=== PATIENT | male | born 1965 | race Caucasian/White ===

== ENCOUNTER → 2024-06-09 | Outpatient (CLI) | payer MEDICAID ==
[~2024-06-09] MED LIST: NORPTMEDS CO
[2024-06-09] MEDS: ALBUMIN 25% 100 ML IV ONE (14:44)
--- NOTE | 2024-06-09 14:44 | DVH ---
ULTRASOUND ABDOMEN LIMITED INDICATION: Ascites. TECHNIQUE: Ultrasound evaluation of the 4 quadrants of the abdomen for ascites evaluation. COMPARISON: None FINDINGS: There is ascites visualized in all 4 quadrants of the abdomen, greater on the right side. IMPRESSION: 1. There is ascites in all 4 quadrants of the abdomen. HS:Y
--- NOTE | 2024-06-09 15:31 | DVH ---
PROCEDURE: ULTRASOUND GUIDED PARACENTESIS HISTORY: 58 Male requiring paracentesis. TECHNIQUE: The risks and benefits of the procedure including but not limited to bleeding, infection and injury t o abdominal organs were explained to the patient and written informed consent was obtained. Optimal site for puncture was determined using ultrasound and the area sterilized and draped. Using a 5 [place] ZAO Beguneh catheter, paracentesis was performed in the right lower abdomen. Approximately 10 liters of straw colored fluid was removed. The patient tolerated the procedure well. There were no i mmediate complications. IMPRESSION: Ultrasound-guided paracentesis with no immediate complications.
[2024-06-09 21:55] LABS: Body Fluid Polymorphonuclear 5 % (0-25); Body Fluid Red Blood Cells 220 CUMM (0-2000); Body Fluid White Blood Cells 239 CUMM (0-200)
[2024-06-11 12:07] LABS: Protein, Body Fluid 2.7 g/dL (.)
== END | disposition home or self-care (01) ==
LOC: US 13:27
DX: R18.8 Other ascites (principal)
CPT/HCPCS: 49083; 76705; 83986; 87205; 89051; C1729; P9047; 76942

== ENCOUNTER → 2024-07-08 | Outpatient (CLI) | payer MEDICAID ==
--- NOTE | 2024-07-08 14:32 | DVH ---
PROCEDURE: ULTRASOUND GUIDED PARACENTESIS HISTORY: 58 Male requiring paracentesis. TECHNIQUE: The risks and benefits of the procedure including but not limited to bleeding, infection and injury t o abdominal organs were explained to the patient and written informed consent was obtained. Optimal site for puncture was determined using ultrasound and the area sterilized and draped. Using a 5 [place] oboxoeh catheter, paracentesis was performed in the right lower abdomen. Approximately 9.4 liters of straw colored fluid was removed. The patient tolerated the procedure well. There were no immediate complications. IMPRESSION: Ultrasound-guided paracentesis with no immediate complications.
[2024-07-08 19:07] LABS: Body Fluid Red Blood Cells 20 CUMM (0-2000); Body Fluid White Blood Cells 377 CUMM (0-200)
[2024-07-08 19:14] LABS: Body Fluid Polymorphonuclear 10 % (0-25)
[2024-07-09 12:06] LABS: Protein, Body Fluid 2.7 g/dL (.)
== END | disposition home or self-care (01) ==
LOC: XYW 12:37
DX: R18.8 Other ascites (principal)
CPT/HCPCS: 49083; 83986; 87205; 89051; C1729; 76705; 76942

== ENCOUNTER → 2024-07-29 | Outpatient (CLI) | payer MEDICAID ==
--- NOTE | 2024-07-29 12:59 | DVH ---
US PARACENTESIS, HISTORY: OTHER ASCITES PROCEDURE: Informed consent was obtained. The patient was placed in supine position. A limited locali zation ultrasound of the abdomen was obtained, and the skin site over the largest pocket of fluid was marked and entry site was prepped with chlorhexidine which was allowed to dry and draped in the usua l sterile fashion. Time out was performed. Following administration of 1% lidocaine local anesthetic, a 5 Greek centesis needle catheter was percutaneously inserted into the peritoneal collection until fluid was aspirated. The catheter was advanced into the fluid collection and the needle removed. [place]bo [place] 8700 cc of fluid was aspirated . The catheter was then removed and a sterile dressing applied. No immediate complication was identified. FINDINGS: Limited ultrasound imaging demonstrates moderate ascites. Aspirated fluid was clear and ser ous. IMPRESSION: US-guided paracentesis with 8.7L removed.
[2024-07-29 14:57] LABS: Body Fluid Red Blood Cells 372 CUMM (0-2000); Body Fluid White Blood Cells 333 CUMM (0-200)
[2024-07-29 15:03] LABS: Body Fluid Polymorphonuclear 2 % (0-25)
[2024-07-30 11:06] LABS: Protein, Body Fluid 2.5 g/dL (.)
== END | disposition home or self-care (01) ==
LOC: XYW 11:31
DX: R18.8 Other ascites (principal)
CPT/HCPCS: 49083; 76705; 76942; 83986; 87205; 88104; 88305; 88342; 89051; C1729

== ENCOUNTER → 2024-08-19 | Outpatient (CLI) | payer MEDICAID ==
--- NOTE | 2024-08-19 14:49 | DVH ---
US PARACENTESIS, HISTORY: OTHER ASCITES PROCEDURE: Informed consent was obtained. The patient was placed in supine position. A limited locali zation ultrasound of the abdomen was obtained, and the skin site over the largest pocket of fluid was marked and entry site was prepped with chlorhexidine which was allowed to dry and draped in the usua l sterile fashion. Time out was performed. Following administration of 1% lidocaine local anesthetic, a 5 Malay centesis needle catheter was percutaneously inserted into the peritoneal collection until fluid was aspirated. The catheter was advanced into the fluid collection and the needle removed. [place] 9550 cc of fluid was aspirated . The catheter was then removed and a sterile dressing applied. No immediate complication was identified. FINDINGS: Limited ultrasound imaging demonstrates moderate ascites. Aspirated fluid was clear and ser ous. IMPRESSION: US-guided paracentesis with 9.6L removed.
== END | disposition home or self-care (01) ==
LOC: US 12:24
DX: R18.8 Other ascites (principal)
CPT/HCPCS: 49083; C1729; 76705; 76942